=== PATIENT | female | born 1970 | race Caucasian/White ===

== ENCOUNTER → 2016-04-20 | Outpatient (CLI) | payer BC ==
[~2016-04-20] MED LIST: HYDR2.5C37 TOP; IBUP-103 PO; LEVO75TA5 PO
== END | disposition home or self-care (01) ==
LOC: C.PAPS 08:06
PROVIDERS: ATTEND Obstetrics & Gynecology
DX: Z01.419 Encounter for gynecological examination (general) (routine) without abnormal findings (principal)

== ENCOUNTER → 2016-07-21 | Outpatient (CLI) | payer BC ==
--- NOTE | 2016-07-21 12:50 | MAMMOGRAPHY REPORT ---
ULTRASOUND OF RIGHT BREAST: 07/21/2016 CLINICAL HISTORY: 45-year-old woman presents for follow-up in the right breast for possible complica tom cysts seen on prior ultrasound. COMPARISON: Comparison is made to exams dated: 01/21/2016 ultrasound, 01/16/2016 mammogram, 07/05/2014 mammogram, 06/27/2013 mammogram, 06/24/2012 mammogram, and 03/05/2009 mammogram - [facility]. FINDINGS: Real-time high-resolution sonographic evaluation was performed throughout the upper outer quadrant and upper inner quadrant of the right breast. Numerous scattered anechoic benign simple c ysts are seen throughout fibroglandular tissue. In addition, a few mildly complicated cysts are aga in seen. There is a grouping of cysts in the 11:00 to 12:00 right breast, 2 cm from the nipple, zachery suring 7.2 x 4.0 x 4.9 mm in conglomerate. Another grouping of anechoic benign simple cysts are joaquin ntified in the 1:00 right breast, 2 cm from the nipple, measuring 5.9 x 4.2 x 3.9 mm. A cyst cluste r is identified in the 3:00 right breast. In anechoic benign simple cyst measuring 2.9 mm is identi fied in the 9:00 right breast, 4 cm from the nipple. There is a mixed hypoechoic and anechoic cysti c appearing mass in the 9:30 right breast, 6 cm from the nipple, measuring 4.1 x 2.7 x 4.7 mm, this previously measured 3.6 x 2.8 x 4.4 mm, and has the appearance of a complicated cyst. An anechoic b enign simple cyst with posterior acoustic enhancement is again seen in the 9:30 right breast, 4 cm f rom the nipple, measuring 7.2 mm. Again, this was thought to correlate with the circumscribed mammo graphic mass seen on screening mammography. In the 10:00 right breast, 4 cm from the nipple, there is a rounded hypoechoic cystic-appearing mass measuring 3.1 x 3.0 x 3.1 mm, previously measured 3.4 x 3.2 mm. No suspicious solid mass is identified. IMPRESSION: ACR-BI-RADS CATEGORY 3: PROBABLY BENIGN - FOLLOW-UP RECOMMENDED There are numerous scattered anechoic benign simple cysts throughout the superior right breast, with a few possibly, gated cysts in the 9:30 and 10:30 axes. These findings most likely represent benig n fibrocystic changes but another short interval follow-up diagnostic right mammogram and possible r epeat ultrasound is recommended to ensure longer stability. Annual bilateral mammography will be du e at that time. These results and recommendations were discussed with the patient at the time of the exam. Bere Cevallos M.D. ay/:07/21/2016 09:23:43 Administrator: Dr. Bere Cevallos, [facility] letter sent: Follow Up Recommended 3 BI-RADS Code: ACR-BI-RADS Category 3: Probably Benign
== END | disposition home or self-care (01) ==
LOC: C.MAMM 08:53
PROVIDERS: ATTEND Obstetrics & Gynecology
DX: Z09 Encounter for follow-up examination after completed treatment for conditions other than malignant neoplasm (principal); Z12.31 Encounter for screening mammogram for malignant neoplasm of breast; N63 Unspecified lump in breast

== ENCOUNTER → 2017-01-21 | Outpatient (CLI) | payer BC ==
--- NOTE | 2017-01-21 14:53 | MAMMOGRAPHY REPORT ---
BILATERAL DIGITAL DIAGNOSTIC MAMMOGRAM TOMOSYNTHESIS WITH CAD AND TARGETED RIGHT ULTRASOUND: 7 CLINICAL HISTORY: Short interval follow-up of probable complicated cysts in the right 9:30 and 10:00 breast. The patient reports no current complaints. TECHNIQUE: Breast tomosynthesis in addition to standard 2D mammography was performed. Current study was also evaluated with a Computer Aided Detection (CAD) system. Bilateral CC and MLO 2-D and tomosy nthesis images were obtained. COMPARISON: Comparison is made to exams dated: 07/21/2016 ultrasound, 01/21/2016 ultrasound, 01/16/2016 mammogram, 07/05/2014 mammogram, 06/27/2013 mammogram, and 06/24/2012 mammogram - [facility]. BREAST COMPOSITION: The tissue of both breasts is heterogeneously dense, which may obscure small mas ses. FINDINGS: There are no suspicious masses, calcifications, or areas of architectural distortion noted in either breast. There has been no significant interval change compared to prior exams. Round circ umscribed benign-appearing 6 mm mass within the right lateral breast middle depth on the cc view is s table compared to the January 2016 exam. Targeted ultrasound was performed of the area of the previously seen masses for which follow-up was r ecommended. In the right breast at 9:30, approximately 6 cm from the nipple, there is a circumscribe d macrolobulated anechoic mass with posterior acoustic enhancement measuring 4 x 4 x 4 mm. This is n ot significantly changed compared to the prior exam and is benign and compatible with a cyst. Anecho ic benign simple cyst measuring 5 x 6 mm is again noted in the right 9:30 breast, 4 cm from the nippl e. In the right breast at approximately 10:00, 4 cm from the nipple, there is an oval circumscribed benign 3 x 3 mm cyst. In the right breast at 10 to 10:30, approximately 4 cm from the nipple, there is a round circumscribed anechoic 3 x 3 mm mass, which is stable dating back to the January 2016 exa m when accounting for differences in measurement technique and is compatible with a cyst. Other anec hoic benign cysts were again noted during the ultrasound exam. No suspicious masses are evident. IMPRESSION: ACR BI-RADS CATEGORY 2: BENIGN, TARGETED ULTRASOUND ACR BI-RADS CATEGORY 2: BENIGN Small benign-appearing masses in the right 9:30 and 10:30 breast are stable and are benign and compat ible with cysts. There is no mammographic or targeted sonographic evidence of malignancy. A 1 year s creening mammogram is recommended. The patient has been verbally notified of the results. Approximately 10% of breast cancers are not detected with mammography. A negative mammographic report should not delay biopsy if a clinically suggestive mass is present. Nathalie Jones M.D. ah/:01/21/2017 11:50:51 Physician Ophthalmologist: Chantal KIMBLE(Bin)(Darlene), [facility] letter sent: Normal 1/2 BI-RADS Code: ACR BI-RADS Category 2: Benign Ultrasound BI-RADS: ACR BI-RADS Category 2: Benign
== END | disposition home or self-care (01) ==
LOC: C.MAMM 09:01
PROVIDERS: ATTEND Obstetrics & Gynecology
DX: N63.10 Unspecified lump in the right breast, unspecified quadrant (principal)